=== PATIENT | female | born 1970 | race Caucasian/White ===

== ENCOUNTER 2016-08-25 01:43 | Emergency (ER) | payer SELFPAY ==
[2016-08-25 02:04] VITALS: BP 130/97; PULSE 100; RESP 20; TEMP 97.9; O2SAT 100
[2016-08-25 02:23] LABS: AUTOMATED NEUTROPHIL # 6.2 TH/MM3 (1.8-7.7); BASOPHIL % 0.5 % (0.0-2.0); EOSINOPHIL # 0.1 TH/MM3 (0-0.4); EOSINOPHIL % 0.6 % (0.0-4.0); HEMATOCRIT 39.7 % (35.0-46.0); HEMO FLAGS DIFF FINAL; LYMPH % 23.8 % (9.0-44.0); LYMPHOCYTE # 2.2 TH/MM3 (1.0-4.8); MEAN CELL VOLUME 95.8 FL (80.0-100.0); MEAN CORPUSCULAR HEMOGLOBIN 32.3 PG (27.0-34.0); MEAN CORPUSCULAR HGB CONC 33.7 % (32.0-36.0); MONO % 7.2 % (0.0-8.0); NEUT % 67.9 % (16.0-70.0); PLATELET COUNT 245 TH/MM3 (150-450); RED BLOOD COUNT 4.14 MIL/MM3 (4.00-5.30); RED CELL DISTRIBUTION WIDTH 13.3 % (11.6-17.2); WHITE BLOOD COUNT 9.1 TH/MM3 (4.0-11.0)
[2016-08-25 02:31] LABS: AMPHETAMINE, URINE POS (NEG); BARBITURATES, URINE NEG (NEG); COCAINE, URINE NEG (NEG)
--- NOTE | 2016-08-25 02:39 | PD ---
HPI Chief Complaint: Psychiatric Symptoms Time Seen by Provider: 02:34 Travel History International Travel<30 days: No Contact w/Intl Traveler<30days: No Traveled to known affect area: No History of Present Illness HPI 46-year-old white female presents to emergency department under Xie act by PD. The patient just moved back to [place] one week ago from [place]. She is staying in a tent with her boyfriend. The patient states that she had her car impounded by police. It appears that she may have been parking illegally. During the interaction with police she stated that she was having shortness of breath due to asthma. She states that she uses an albuterol inhaler as needed for asthma. She reports over the last few days having increased need for her inhaler. She states that police allowed her to access her car and get her purse. During the interaction with police the patient admitted to having suicidal thoughts. She states that she's attempted suicide twice in the past. She states that she thinks of suicide on occasion and has no plan on hurting herself. She states that committing suicide is selfish and she has no intentions on it. She states that her son is going to be moving down with her. She denies any homicidal ideation. She denies any toxic ingestions. No recent illness other than her asthma exacerbation. She does smoke. She denies any drugs and alcohol. The patient does state that she feels anxious and that she's been having anxiety panic attacks. [facility] Past Medical History Asthma: Yes Anxiety: Yes Tetanus Vaccination: < 5 Years ?: Not LMP: 08/13/16 Past Surgical History Tonsillectomy: Yes Other Surgery: Yes (BREAST AUGMENTATION) Social History Alcohol Use: No Tobacco Use: Yes Substance Use: No Allergies-Medications (Allergen,Severity, Reaction): Coded Allergies: Codeine (Unverified Allergy, Mild, 08/25/16) Review of Systems Except as stated in HPI: all other systems reviewed are Neg General / Constitutional: No: Fever, Chills Eyes: No: Blurred Vision HENT: No: Headaches, Sore Throat Cardiovascular: No: Chest Pain or Discomfort, Palpitations Respiratory: Positive: Cough, Shortness of Breath, Wheezing Gastrointestinal: No: Nausea, Vomiting Genitourinary: No: Dysuria, Hematuria Musculoskeletal: No: Myalgias, Arthralgias Skin: No Rash, No Itching Neurologic: No: Change in Mentation, Slurred Speech Psychiatric: Positive: Anxiety, Suicidal Ideations, No: Depression, Disorder of Thought, Mood Disorder, Substance Abuse, Homicidal Ideation Physical Exam Narrative GENERAL: Well-nourished, well-developed patient. SKIN: Warm and dry. HEAD: Normocephalic and atraumatic. EYES: No scleral icterus. No injection or drainage. ENT: No nasal drainage noted. Mucous membranes pink. Airway patent. NECK: Supple, trachea midline. Moves head freely without obvious discomfort. CARDIOVASCULAR: Regular rate and rhythm without murmurs, gallops, or rubs. RESPIRATORY: Breath sounds equal bilaterally. No accessory muscle use. GASTROINTESTINAL: Abdomen soft, non-tender, nondistended. EXTREMITIES: No cyanosis or edema. BACK: Nontender without obvious deformity. No CVA tenderness. NEURO: Patient is alert and oriented. no sensorimotor deficits. Nonfocal. Normal speech. PSYCH: No delusions. No auditory or visual hallucinations. Data Data Last Documented VS Vital Signs Date Time Temp Pulse Resp B/P Pulse Ox O2 Delivery O2 Flow Rate FiO2 08/25/16 02:04 97.9 100 20 130/97 100 Orders Complete Blood Count With Diff (08/25/16 01:55) Comprehensive Metabolic Panel (08/25/16 01:55) Ed Urine Pregnancytest Poc (08/25/16 01:55) Psych Screen (08/25/16 01:55) Drug Screen, Random Urine (08/25/16 01:55) Alcohol (Ethanol) (08/25/16 01:55) Salicylates (Aspirin) (08/25/16 01:55) Tylenol (Acetaminophen) (08/25/16 01:55) Labs Laboratory Tests Test 08/25/16 02:09 White Blood Count 9.1 TH/MM3 Red Blood Count 4.14 MIL/MM3 Hemoglobin 13.4 GM/DL Hematocrit 39.7 % Mean Corpuscular Volume 95.8 FL Mean Corpuscular Hemoglobin 32.3 PG Mean Corpuscular Hemoglobin 33.7 % Concent Red Cell Distribution Width 13.3 % Platelet Count 245 TH/MM3 Mean Platelet Volume 8.2 FL Neutrophils (%) (Auto) 67.9 % Lymphocytes (%) (Auto) 23.8 % Monocytes (%) (Auto) 7.2 % Eosinophils (%) (Auto) 0.6 % Basophils (%) (Auto) 0.5 % Neutrophils # (Auto) 6.2 TH/MM3 Lymphocytes # (Auto) 2.2 TH/MM3 Monocytes # (Auto) 0.7 TH/MM3 Eosinophils # (Auto) 0.1 TH/MM3 Basophils # (Auto) 0.0 TH/MM3 CBC Comment DIFF FINAL Differential Comment Sodium Level 140 MEQ/L Potassium Level 3.5 MEQ/L Chloride Level 105 MEQ/L Carbon Dioxide Level 27.7 MEQ/L Anion Gap 7 MEQ/L Blood Urea Nitrogen 15 MG/DL Creatinine 0.70 MG/DL Estimat Glomerular Filtration 91 ML/MIN Rate Random Glucose 88 MG/DL Calcium Level 9.1 MG/DL Total Bilirubin 0.6 MG/DL Aspartate Amino Transf 18 U/L (AST/SGOT) Alanine Aminotransferase 24 U/L (ALT/SGPT) Alkaline Phosphatase 58 U/L Total Protein 7.2 GM/DL Albumin 4.3 GM/DL Salicylates Level LESS THAN 1.7 MG/DL Urine Opiates Screen NEG Acetaminophen Level LESS THAN 2.0 MCG/ML Urine Barbiturates Screen NEG Urine Amphetamines Screen POS Urine Benzodiazepines Screen NEG Urine Cocaine Screen NEG Urine Cannabinoids Screen NEG Ethyl Alcohol Level LESS THAN 3 MG/DL MDM Medical Decision Making Medical Screen Exam Complete: Yes Emergency Medical Condition: Yes Medical Record Reviewed: Yes Interpretation(s) Laboratory Tests Test 08/25/16 02:09 White Blood Count 9.1 TH/MM3 Red Blood Count 4.14 MIL/MM3 Hemoglobin 13.4 GM/DL Hematocrit 39.7 % Mean Corpuscular Volume 95.8 FL Mean Corpuscular Hemoglobin 32.3 PG Mean Corpuscular Hemoglobin 33.7 % Concent Red Cell Distribution Width 13.3 % Platelet Count 245 TH/MM3 Mean Platelet Volume 8.2 FL Neutrophils (%) (Auto) 67.9 % Lymphocytes (%) (Auto) 23.8 % Monocytes (%) (Auto) 7.2 % Eosinophils (%) (Auto) 0.6 % Basophils (%) (Auto) 0.5 % Neutrophils # (Auto) 6.2 TH/MM3 Lymphocytes # (Auto) 2.2 TH/MM3 Monocytes # (Auto) 0.7 TH/MM3 Eosinophils # (Auto) 0.1 TH/MM3 Basophils # (Auto) 0.0 TH/MM3 CBC Comment DIFF FINAL Differential Comment Sodium Level 140 MEQ/L Potassium Level 3.5 MEQ/L Chloride Level 105 MEQ/L Carbon Dioxide Level 27.7 MEQ/L Anion Gap 7 MEQ/L Blood Urea Nitrogen 15 MG/DL Creatinine 0.70 MG/DL Estimat Glomerular Filtration 91 ML/MIN Rate Random Glucose 88 MG/DL Calcium Level 9.1 MG/DL Total Bilirubin 0.6 MG/DL Aspartate Amino Transf 18 U/L (AST/SGOT) Alanine Aminotransferase 24 U/L (ALT/SGPT) Alkaline Phosphatase 58 U/L Total Protein 7.2 GM/DL Albumin 4.3 GM/DL Salicylates Level LESS THAN 1.7 MG/DL Urine Opiates Screen NEG Acetaminophen Level LESS THAN 2.0 MCG/ML Urine Barbiturates Screen NEG Urine Amphetamines Screen POS Urine Benzodiazepines Screen NEG Urine Cocaine Screen NEG Urine Cannabinoids Screen NEG Ethyl Alcohol Level LESS THAN 3 MG/DL Differential Diagnosis MDM: High Differential diagnoses: Schizophrenia, schizoaffective disorder, bipolar, anxiety, depression, adjustment reaction, mood disorder NOS, ODD, depressive disorder NOS, dementia, dementia with agitation, psychosis NOS, substance induced mood disorder, intermittent explosive disorder, Asperger syndrome, infection,electrolyte abnormality, malingering. Narrative Course Mental health screening discussed with the patient. Psychiatric screen ordered. The patient's been medically cleared. Patient's vital signs are stable. Her lungs are clear. I see no evidence of active asthma. Patient's drug screen is positive for amphetamines. This is medical clearance for psychiatric admission, substance abuse Diagnosis Primary Impression: Medical clearance for psychiatric admission Additional Impression: Substance abuse Condition: Stable Tayo Alarcon Aug 25, 2016 02:39
[2016-08-25 02:47] LABS: ALT (GPT) 24 U/L (10-53); ANION GAP 7 MEQ/L (5-15); AST (GOT) 18 U/L (15-37); BICARBONATE 27.7 MEQ/L (21.0-32.0); BLOOD UREA NITROGEN 15 MG/DL (7-18); CHLORIDE 105 MEQ/L (98-107); GLOMERULAR FILTRATION RATE 91 ML/MIN (>89); POTASSIUM 3.5 MEQ/L (3.5-5.1); SODIUM (NA) 140 MEQ/L (136-145)
[2016-08-25 02:49] LABS: ACETAMINOPHEN LESS THAN 2.0 MCG/ML (10.0-30.0); ALKALINE PHOSPHATASE 58 U/L (45-117); TOTAL BILIRUBIN ADULT 0.6 MG/DL (0.2-1.0)
[2016-08-25 07:29] VITALS: BP 103/61; PULSE 58; RESP 16; O2SAT 100
[2016-08-25 10:20] VITALS: BP 109/56
--- NOTE | 2016-08-25 10:30 | PD ---
History of Present Illness Chief Complaint: Psychiatric Symptoms Time Seen by Provider: 10:00 Travel History International Travel<30 Days: No Contact w/Intl Traveler<30days: No Known affected area: No Legal Status Legal Status: Xie Act Xie Act Signed By: [employer] [employer] Xie Act Comment: 08/25/2016 1228 AM History of Present Illness: This is a 46-year-old female who was brought to the emergency department under a Xie act initiated by law enforcement. Apparently her car was impounded by police and the patient became upset. She began having what appears to be an asthma attack or possibly panic attack and needed her inhaler. Although the police allowed her to obtain her inhaler, she told them of suicidal thoughts. The patient is under stress right now as she moved back to [place] one week ago and is living in a tent with her boyfriend. However, at this time she is calm, pleasant and cooperative. She is willing to contract for safety. She would like to see a psychiatrist on an outpatient basis. She would also like her inhaler as this is what comforts her when she is short of breath. She denies any ingestion of alcohol or illicit substances. Her cognition is intact and she is verbally chiki for safety. [facility] Past Medical History Asthma: Yes Anxiety: Yes Tetanus Vaccination: < 5 Years ?: Not LMP: 08/13/16 Past Surgical History Tonsillectomy: Yes Other Surgery: Yes (BREAST AUGMENTATION) Psychiatric History Psychiatric History Hx Psychiatric Treatment: DENIES History of Inpatient Treatment: No Social History Hx Alcohol Use: No Hx Tobacco Use: Yes Hx Substance Use: Yes (1 ppd) Substance Use Type: Nicotine/Cigarettes Hx of Substance Use Treatment: No Allergies-Medications (Allergen,Severity, Reaction): Coded Allergies: Codeine (Unverified Allergy, Mild, 08/25/16) Review of Systems Except as stated in HPI: all other systems reviewed are Neg Exam Alert: Yes [place]: Person, Place, Date, Situation Mood: Calm Affect: Appropriate Speech: Clear, Logical Eye Contact: Normal Memory Intact: Immediate, Recent, Remote Insight/Judgement Adequate MDM Medical Decision Making Medical Record Reviewed: Yes Assessment/Plan Although the patient admits to making suicidal threats last night and describes a past history including suicide attempts, she is currently calm and verbally chiki for safety. She has 2 issues at this time, including an adjustment disorder and panic attacks. This physician provided her with a referral to [facility] as the patient lives in [place]. This physician however lifted the Xie act as patient is calm and cooperative with intact cognition and she competently is chiki for safety. She does not meet inpatient criteria at this time, in my opinion. She can be seen on an outpatient basis and is willing to follow up with the nurse practitioner. Orders Complete Blood Count With Diff (08/25/16 01:55) Comprehensive Metabolic Panel (08/25/16 01:55) Ed Urine Pregnancytest Poc (08/25/16 01:55) Psych Screen (08/25/16 01:55) Drug Screen, Random Urine (08/25/16 01:55) Alcohol (Ethanol) (08/25/16 01:55) Salicylates (Aspirin) (08/25/16 01:55) Tylenol (Acetaminophen) (08/25/16 01:55) Diet Regular Basic (08/25/16 Breakfast) Results Vital Signs Date Time Temp Pulse Resp B/P Pulse Ox O2 Delivery O2 Flow Rate FiO2 08/25/16 10:20 78 16 109/56 99 08/25/16 07:29 58 16 103/61 100 Room Air 08/25/16 02:04 97.9 100 20 130/97 100 Laboratory Tests Test 08/25/16 02:09 White Blood Count 9.1 Red Blood Count 4.14 Hemoglobin 13.4 Hematocrit 39.7 Mean Corpuscular Volume 95.8 Mean Corpuscular Hemoglobin 32.3 Mean Corpuscular Hemoglobin 33.7 Concent Red Cell Distribution Width 13.3 Platelet Count 245 Mean Platelet Volume 8.2 Neutrophils (%) (Auto) 67.9 Lymphocytes (%) (Auto) 23.8 Monocytes (%) (Auto) 7.2 Eosinophils (%) (Auto) 0.6 Basophils (%) (Auto) 0.5 Neutrophils # (Auto) 6.2 Lymphocytes # (Auto) 2.2 Monocytes # (Auto) 0.7 Eosinophils # (Auto) 0.1 Basophils # (Auto) 0.0 CBC Comment DIFF FINAL Differential Comment Sodium Level 140 Potassium Level 3.5 Chloride Level 105 Carbon Dioxide Level 27.7 Anion Gap 7 Blood Urea Nitrogen 15 Creatinine 0.70 Estimat Glomerular Filtration 91 Rate Random Glucose 88 Calcium Level 9.1 Total Bilirubin 0.6 Aspartate Amino Transf 18 (AST/SGOT) Alanine Aminotransferase 24 (ALT/SGPT) Alkaline Phosphatase 58 Total Protein 7.2 Albumin 4.3 Salicylates Level LESS THAN 1.7 Urine Opiates Screen NEG Acetaminophen Level LESS THAN 2.0 Urine Barbiturates Screen NEG Urine Amphetamines Screen POS Urine Benzodiazepines Screen NEG Urine Cocaine Screen NEG Urine Cannabinoids Screen NEG Ethyl Alcohol Level LESS THAN 3 Diagnosis Primary Impression: Medical clearance for psychiatric admission Additional Impressions: Substance abuse Adjustment disorder with mixed disturbance of emotions and conduct Panic attacks Referrals: [facility] (Out patient) 1 day Departure Forms: Tests/Procedures Patient Instructions: General Instructions, Narcotic Abuse (ED) Condition: Stable Problem Qualifiers Emmanuel Feliciano MD Aug 25, 2016 10:30
== END 2016-08-25 10:23 | disposition home or self-care (01) ==
LOC: NEPD 01:43
DX: F41.0 Panic disorder [episodic paroxysmal anxiety] (principal); F43.25 Adjustment disorder with mixed disturbance of emotions and conduct; F19.10 Other psychoactive substance abuse, uncomplicated; J45.909 Unspecified asthma, uncomplicated; F17.210 Nicotine dependence, cigarettes, uncomplicated
CPT/HCPCS: 80053; 80307; 84703; 85025; 99283

== ENCOUNTER 2016-09-09 04:49 | Emergency (ER) | payer SELFPAY ==
[~2016-09-09] VITALS: Ht 175.3 cm; Wt 55.0 kg
[2016-09-09 04:53] VITALS: BP 140/68; PULSE 96; RESP 16; TEMP 98.3; O2SAT 100
--- NOTE | 2016-09-09 05:13 | PD ---
HPI Chief Complaint: Abdominal Pain Time Seen by Provider: 05:05 Travel History International Travel<30 days: No Contact w/Intl Traveler<30days: No Traveled to known affect area: No History of Present Illness HPI PATIENT CAME INTO ER C/O LEFT INGUINAL AREA LUMP THAT STARTED SINCE PICKING UP A HEAVY PICNIC TABLE. PATIENT DENIES ANY PERSISTENT PAIN, NO N/V AND LUMP GOES IN AND OUT.... PATIENT ALSO C/O BUMP ON RIGHT FOOT THAT IS RED/RAISED AND WARM TO TOUCH FORMERLY [facility], [facility] Past Medical History Asthma: Yes Anxiety: Yes Respiratory: Yes (ASTHMA) ?: Not LMP: 3 WEEKS AGO Past Surgical History Tonsillectomy: Yes Other Surgery: Yes (BREAST AUGMENTATION) Social History Alcohol Use: No Tobacco Use: Yes Substance Use: Yes (1 ppd) Allergies-Medications (Allergen,Severity, Reaction): Coded Allergies: Codeine (Unverified Allergy, Mild, 09/09/16) Reported Meds & Prescriptions Reported Meds & Active Scripts Active No Active Prescriptions or Reported Medications Review of Systems Gastrointestinal: Positive: Abdominal Pain Physical Exam Narrative GENERAL: SKIN: Warm and dry. EXCEPT ERYTHEMATOUS/WARM/LESION ABOUT 5CM IN DIAMETER/NO STREAKING OVER RIGHT DORSUM OF FOOT...NO LAD NOTED HEAD: Atraumatic. Normocephalic. EYES: Pupils equal and round. No scleral icterus. No injection or drainage. ENT: No nasal bleeding or discharge. Mucous membranes pink and moist. NECK: Trachea midline. No JVD. CARDIOVASCULAR: Regular rate and rhythm. RESPIRATORY: No accessory muscle use. Clear to auscultation. Breath sounds equal bilaterally. GASTROINTESTINAL: Abdomen soft, non-tender, nondistended. Hepatic and splenic margins not palpable..LEFT INGUINAL HERNIA, FULLY REDUCIBLE AND NO E/O INCARCERATION, NABS. MUSCULOSKELETAL: Extremities without clubbing, cyanosis, or edema. No obvious deformities. NEUROLOGICAL: Awake and alert. No obvious cranial nerve deficits. Motor grossly within normal limits. Five out of 5 muscle strength in the arms and legs. Normal speech. PSYCHIATRIC: Appropriate mood and affect; insight and judgment normal. Data Data Last Documented VS Vital Signs Date Time Temp Pulse Resp B/P Pulse Ox O2 Delivery O2 Flow Rate FiO2 09/09/16 04:53 98.3 96 16 140/68 100 Room Air Orders Sulfamet-Trimeth Ds 800-160 Mg (Bactrim (09/09/16 05:15) MDM Medical Decision Making Medical Screen Exam Complete: Yes Emergency Medical Condition: Yes Medical Record Reviewed: Yes Differential Diagnosis CELLULITIS, HERNIA (REDUCIBLE V STRANGULATED V INCARCERATED) Narrative Course WITH NABS AND NO ABD TTP/REBOUND/GUARDING/RIGIDITY PRESENCE AND LEFT INGUINAL FULLY AND EASILY REDUCIBLE WITHOUT ANY SEDATION OR PAIN MEDICATION Diagnosis Primary Impression: RIGHT FOOT CELLULITIS Additional Impression: LEFT INGUINAL HERNIA (REDUCIBLE) Patient Instructions: Cellulitis (ED), General Instructions, Inguinal Hernia ( ED) Additional Instructions: PLEASE CONTACT A GENERAL SURGEON TO HAVE YOUR HERNIA REPAIRED AN OUTPATIENT ROUTINE PROCEDURE. FINISH YOUR ANTIBIOTICS Scripts Tramadol (Ultram)50 Mg Tab50 Mg PO Q4H PRN (PAIN) #6 TAB Prov:Mitchell Esparza MD 09/09/16 Sulfamethoxazole-Trimethoprim (Bactrim DS)800-160 Mg Tab1 Tab PO BID #20 TAB Prov:Mitchell Esparza MD 09/09/16 Disposition: 01 DISCHARGE HOME Condition: Stable Mitchell Esparza MD Sep 09, 2016 05:13
[2016-09-09] MEDS ORDERED: SULFAMETHOXAZOLE-TRIMETHOPRIM DS 800-160 MG TAB PO ONE (05:15)
[2016-09-09] MEDS ORDERED: BACT800T5 PO (05:22)
[2016-09-09] MEDS ORDERED: ULTR50TA5 PO (05:22)
== END 2016-09-09 05:41 | disposition home or self-care (01) ==
LOC: NEPC 04:49
DX: L03.115 Cellulitis of right lower limb (principal); K40.90 Unilateral inguinal hernia, without obstruction or gangrene, not specified as recurrent; J45.909 Unspecified asthma, uncomplicated; F41.9 Anxiety disorder, unspecified; Z72.0 Tobacco use
CPT/HCPCS: 99284